=== PATIENT | male | born 1965 | race Caucasian/White ===

== ENCOUNTER → 2018-05-03 | Outpatient (CLI) | payer OTHER ==
--- NOTE | 2018-05-03 10:30 | DIAGNOSTIC IMAGING REPORT ---
BONY ORBITS 3 VIEWS CLINICAL HISTORY: MRI clearance. FINDINGS: 3 views of the bony orbits are obtained. There is no radiodense/metallic foreign body seen in the region of the bony orbits. The bony orbits are intact as imaged. The visualized paranasal sinuses and the mastoid air cells appear clear. The imaged calvarium appears intact. IMPRESSION: There is no radiodense/metallic foreign body seen in the region of the bony orbits. Electronically signed by: Alex Lorenzana M.D. 05/03/2018 10:28 AM Dictated Date/Time: 05/03/2018 10:28 AM
--- NOTE | 2018-05-03 12:48 | DIAGNOSTIC IMAGING REPORT ---
MRI OF THE LUMBAR SPINE WITHOUT IV CONTRAST CLINICAL HISTORY: Low back pain. Right lower extremity radiculopathy. COMPARISON STUDY: Radiographs of the lumbar spine dated 04/22/2018. TECHNIQUE: MRI of the lumbar spine is performed utilizing various T1 and T2 sequences in the axial and sagittal planes. IV contrast was not administered for this examination. The examination is modestly degraded by motion artifact. FINDINGS: Lumbar spine: Vertebral body height is maintained at the lumbar spine. There are bilateral pars defects at L5 with minimal anterolisthesis at L5-S1. Alignment is otherwise preserved. Small anterior osteophytes are seen throughout. Chronic degenerative endplate change is seen at L2-L3, L3-L4, and L5-S1. Endplate edema is seen at L2-L3 and L5-S1. No destructive bony lesion is identified. The transverse and spinous processes appear intact. Intervertebral discs: Degenerative disc desiccation is seen throughout the lumbar spine. Mild loss of height is noted at L2-L3 and L5-S1. Spinal cord: The visualized spinal cord is normal in morphology and signal intensity. The conus medullaris terminates at the level of L1. The nerve roots of the cauda equina are normal in morphology. L1-L2: Unremarkable. L2-L3: There is minimal posterior disc bulge with annular fissure. There is no significant acquired compromise of the central canal. There is mild bilateral subarticular stenosis. The neural foramina are patent. L3-L4: There is a disc bulge eccentric to the left. This causes left-sided subarticular stenosis and likely abuts the exiting L3 and the transiting L4 nerve roots. There is no significant central canal stenosis. The neural foramina are patent. L4-L5: There is minimal posterior disc bulge with annular fissure. This causes mild bilateral subarticular stenosis. The disc bulge may abut the exiting bilateral L4 and the transiting bilateral L5 nerve roots. There is no significant central canal stenosis. Facet arthropathy causes minimal left-sided neural foraminal stenosis. L5-S1: There is minimal posterior disc bulge with annular fissure. There is no significant acquired compromise of the central canal. The neural foramina are patent. Sacrum: The visual sacrum is normal in morphology and signal intensity. Soft tissues: The paraspinous soft tissues are normal as imaged. Bilateral renal cysts are partially visualized. IMPRESSION: 1. Degenerative disc disease as above with chronic degenerative endplate change. There is degenerative endplate edema seen at L2-L3 and L5-S1. 2. There is no large disc herniation or significant central canal stenosis. 3. Spondylotic change as above. See discussion for detailed level by level analysis. 4. There are bilateral pars defects at L5 with grade 1 anterolisthesis at L5-S1. Dictated: 05/03/2018 11:42 AM Transcribed: 05/03/2018 12:47 PM [email or web address] Electronically signed by: Alex Lorenzana M.D. 05/03/2018 1:20 PM Dictated Date/Time: 05/03/2018 11:42 AM
== END | disposition home or self-care (01) ==
LOC: C.RAD 10:03
PROVIDERS: ATTEND Family Medicine
DX: M54.31 Sciatica, right side (principal); M51.36 Other intervertebral disc degeneration, lumbar region; M43.17 Spondylolisthesis, lumbosacral region